=== PATIENT | female | born 1960 | race Caucasian/White ===

== ENCOUNTER 2024-04-02 08:50 | Day surgery (SDC) | payer MEDICARE, BC ==
--- NOTE | 2024-03-31 17:49 | HP ---
HISTORY AND PHYSICAL HISTORY OF PRESENT ILLNESS: The patient presents for screening colonoscopy. PAST MEDICAL HISTORY: None reported. HOME MEDICATIONS: None reported. ALLERGIES: None reported. PAST SURGICAL HISTORY: None recent. FAMILY HISTORY: None reported. REVIEW OF SYSTEMS: CONSTITUTIONAL: Denies fever or chills. CHEST: Denies shortness of breath. CARDIOVASCULAR: Denies any chest pain. ABDOMEN: Denies abdominal pain. PHYSICAL EXAMINATION: GENERAL: No acute distress. CARDIOVASCULAR: Regular rate and rhythm. RESPIRATORY: Nonlabored. No shortness of breath. ABDOMEN: Soft. IMPRESSION: Screening. PLAN: Colonoscopy with Dr. Hamlet Gonsalves. This report was dictated for Dr. Gonsalves by Christiana Quiles NP.
[2024-04-02] MEDS ORDERED: Lactated Ringers 1,000 ML IV ONE (09:00)
[2024-04-02] MEDS: Lactated Ringers 1,000 ML IV SCH (10:00)
[2024-04-02] MEDS ORDERED: Xylocaine-Mpf 2% 5 Ml Vial ONE (10:31)
[2024-04-02] MEDS ORDERED: DIPRIVAN 200 MG/20 ML IV ONE ×2 (10:31→10:59)
[2024-04-02] MEDS ORDERED: Versed 2 MG/2 ML Injection ONE (10:31)
[2024-04-02] MEDS ORDERED: Triple Antibiotic Ointment ONE (10:53)
[2024-04-02] MEDS ORDERED: Marcaine Mpf 0.5% Vial 30 Ml ONE (10:53)
[2024-04-02] MEDS ORDERED: GlucaGen 1 MG ONE (11:01)
[2024-04-02 11:51] VITALS: RESP 18
[2024-04-02 12:03] VITALS: BP 126/74; PULSE 59; TEMP 96; O2SAT 99
--- NOTE | 2024-04-03 17:33 | OP ---
SURGERY DATE/TIME: 04/02/2024 [id number] PREOPERATIVE DIAGNOSES: 1) Skin lesion, right chin, 8 mm. 2) Five years status post polyps followup. POSTOPERATIVE DIAGNOSIS: Colonoscopy and chin lesion removal. PROCEDURES: 1) Excision and closure. 2) Colonoscopy completed to the cecum. SURGEON: Hamlet Gonsalves MD FINDINGS: Moderate sigmoid and descending colon diverticulosis. No mucosal lesions were noted today. The ileum was cannulated for 4 inches. There were moderate internal hemorrhoids and mild external hemorrhoids. DESCRIPTION OF PROCEDURE AND FINDINGS: Patient was taken to surgery. Prepped and draped the right chin. An 8 mm lesion was taken along the skin lines as best as possible elliptically. It was cauterized with pinpoint electrocautery at 20. Flaps were mobilized very lightly with the pinpoint electrocautery. Approximated with 4 sutures, #6-0 Prolene. Sterile ointment applied. This appeared to be a benign lesion grossly. Anal digital examination was satisfactory. Scope was introduced. There was a little spasm and glucagon 0.5 amp was given twice during the procedure. Good relief of spasm was obtained. Scope was advanced to the cecum. Base of the cecum, ileocecal valve, and appendiceal area were noted. The ileocecal valve was cannulated for about 4 inches, and the terminal ileum was normal. The scope was circumferentially withdrawn. There were about 20 diverticula in the upper sigmoid and in the lower descending. Two of these still had stool in them. Scope was circumferentially withdrawn. It was then passed back up to the splenic flexure for additional comfort and exsufflation. There were moderate internal hemorrhoids. There were mild external hemorrhoids. Patient tolerated the procedure satisfactorily. Ancipitate followup in 5 years. Patient has 2 family members, 1 uncle and 1 aunt on her mom's side of the family that have had colon cancer.
== END 2024-04-02 12:09 | disposition home or self-care (01) ==
LOC: SDC 08:50
PROVIDERS: ATTEND Surgery
DX: Z12.11 Encounter for screening for malignant neoplasm of colon (principal); Z80.0 Family history of malignant neoplasm of digestive organs; L98.9 Disorder of the skin and subcutaneous tissue, unspecified; K57.30 Diverticulosis of large intestine without perforation or abscess without bleeding; K64.8 Other hemorrhoids; K64.4 Residual hemorrhoidal skin tags
CPT/HCPCS: 11443; G0121; J1610; J2250; J2704; A9270-GY